=== PATIENT | male | born 1950 | race Caucasian/White ===

== ENCOUNTER 2017-01-22 10:30 | Emergency (ER) | payer MEDICARE ==
--- NOTE | 2017-01-22 10:46 | ED ---
General Adult HPI - General Stated complaint: TIA symptoms Time Seen by Provider: 01/22/17 10:30 Source: RN notes reviewed - History of Present Illness Initial comments: This is a 66-year-old male who presents emergency Department with sudden onset of left sided facial droop and some mild left arm weakness and very minimal left leg dragging. Patient states he does not notices but his daughter notices. Prior to 1010 patient was normal according to family members. Patient denies any headache. Again patient does not appreciate any numbness or weakness. Patient denies any chest pain difficulty breathing [place] of breath per patient denies any recent fever chills or cough. Patient denies any abdominal pain patient denies nausea vomiting diarrhea. Patient denies any previous history of stroke. Patient denies any problems with carotids. Patient denies any eye dentinalgia. Patient denies any kidney dysfunction. - Related Data Home Medications Medication Instructions Recorded Confirmed Tadalafil [Cialis] PRN 01/22/17 Allergies Allergy/AdvReac Type Severity Reaction Status Date / Time No Known Allergies Allergy Verified 01/22/17 10:56 Review of Systems ROS Statement: Those systems with pertinent positive or pertinent negative responses have been documented in the HPI. ROS Other: All systems not noted in ROS Statement are negative. General Exam - General Exam Comments Initial Comments: GENERAL: Patient is well-developed and well-nourished. Patient is nontoxic and well- hydrated and is in no acute distress. ENT: Neck is soft and supple. No significant lymphadenopathy is noted. Oropharynx is clear. Moist mucous membranes. Neck has full range of motion without eliciting any pain. EYES: The sclera were anicteric and conjunctiva were pink and moist. Extraocular movements were intact and pupils were equal round and reactive to light. Eyelids were unremarkable. PULMONARY: Unlabored respirations. Good breath sounds bilaterally. No audible rales rhonchi or wheezing was noted. CARDIOVASCULAR: There is a regular rate and rhythm without any murmurs gallops or rubs. Femoral pulses are equal bilaterally ABDOMEN: Soft and nontender with normal bowel sounds. No palpable organomegaly was noted. There is no palpable pulsatile mass. SKIN: Skin is clear with no lesions or rashes and otherwise unremarkable. NEUROLOGIC: Patient is alert and oriented x3. Patient has no speech disturbance. Patient does have a left-sided facial droop with intact forehead. Patient has left arm weakness but no drift. [employer] are equal bilaterally Patient also has left plantar flexion weakness. MUSCULOSKELETAL: Normal extremities with adequate strength and full range of motion. No lower extremity swelling or edema. No calf tenderness. LYMPHATICS: No significant lymphadenopathy is noted PSYCHIATRIC: Normal psychiatric evaluation. Normal interpersonal interactions appears functionally intact in deals appropriately with others. No signs of depression. No signs of anxiety. No delusions. No hallucinations. Course Vital Signs 01/22/17 01/22/17 01/22/17 11:00 11:15 11:33 Temperature 98.2 F 98.2 F 98.2 F Pulse Rate 86 88 88 Respiratory 16 16 16 Rate Blood Pressure 168/97 161/89 163/95 O2 Sat by Pulse 95 98 96 Oximetry 01/22/17 11:45 Temperature Pulse Rate 87 Respiratory 16 Rate Blood Pressure 163/95 O2 Sat by Pulse 96 Oximetry Medical Decision Making - Medical Decision Making EKG shows normal sinus rhythm at 82 bpm VT interval is 176 dresses 96 QT interval 374 QTC is 436. Patient's EKG shows no ST segment elevation or depression. CT of the brain shows multiple hemorrhagic lesions. 3 hemorrhagic lesion on the right 3 other lesions are also noted on the right are not hemorrhagic and 3 other lesions are noted on the left. Lesions are consistent with metastatic disease. Chest x-ray shows multiple nodules consistent with metastatic disease. I spoke with a [facility] who accepted the patient and I will be transferring the patient to the [facility] admission. I gave the patient Decadron for some other mild vasogenic edema I noted. I also gave the patient Ativan for his anxiety. - Lab Data Result diagrams: 01/22/17 10:44 01/22/17 10:44 Lab Results 01/22/17 01/22/17 01/22/17 Range/Units 10:44 10:44 10:44 WBC 4.5 (3.8-10.6) k/uL RBC 4.40 (4.30-5.90) m/uL Hgb 15.0 (13.0-17.5) gm/dL Hct 42.8 (39.0-53.0) % MCV 97.2 (80.0-100.0) fL MCH 34.0 (25.0-35.0) pg MCHC 35.0 (31.0-37.0) g/dL RDW 12.6 (11.5-15.5) % Plt Count 208 (150-450) k/uL Neutrophils % 62 % Lymphocytes % 26 % Monocytes % 8 % Eosinophils % 1 % Basophils % 1 % Neutrophils # 2.8 (1.3-7.7) k/uL Lymphocytes # 1.2 (1.0-4.8) k/uL Monocytes # 0.4 (0-1.0) k/uL Eosinophils # 0.1 (0-0.7) k/uL Basophils # 0.0 (0-0.2) k/uL PT (9.0-12.0) sec INR (<1.1) APTT (22.0-30.0) sec Sodium 141 (137-145) mmol/L Potassium 4.0 (3.5-5.1) mmol/L Chloride 107 (98-107) mmol/L Carbon Dioxide 24 (22-30) mmol/L Anion Gap 10 mmol/L BUN 13 (9-20) mg/dL Creatinine 0.90 (0.66-1.25) mg/dL Est GFR (MDRD) Af Amer >60 (>60 ml/min/1.73 sqM) Est GFR (MDRD) Non-Af >60 (>60 ml/min/1.73 sqM) Glucose 103 H (74-99) mg/dL Calcium 9.4 (8.4-10.2) mg/dL Total Bilirubin 0.8 (0.2-1.3) mg/dL AST 24 (17-59) U/L ALT 32 (21-72) U/L Alkaline Phosphatase 71 (38-126) U/L Total Creatine Kinase 121 (55-170) U/L CK-MB (CK-2) 1.2 (0.0-2.4) ng/mL CK-MB (CK-2) Rel Index 1.0 Troponin I <0.012 (0.000-0.034) ng/mL Total Protein 7.1 (6.3-8.2) g/dL Albumin 4.6 (3.5-5.0) g/dL 01/22/17 Range/Units 10:44 WBC (3.8-10.6) k/uL RBC (4.30-5.90) m/uL Hgb (13.0-17.5) gm/dL Hct (39.0-53.0) % MCV (80.0-100.0) fL MCH (25.0-35.0) pg MCHC (31.0-37.0) g/dL RDW (11.5-15.5) % Plt Count (150-450) k/uL Neutrophils % % Lymphocytes % % Monocytes % % Eosinophils % % Basophils % % Neutrophils # (1.3-7.7) k/uL Lymphocytes # (1.0-4.8) k/uL Monocytes # (0-1.0) k/uL Eosinophils # (0-0.7) k/uL Basophils # (0-0.2) k/uL PT 9.9 (9.0-12.0) sec INR 1.0 (<1.1) APTT 24.3 (22.0-30.0) sec Sodium (137-145) mmol/L Potassium (3.5-5.1) mmol/L Chloride (98-107) mmol/L Carbon Dioxide (22-30) mmol/L Anion Gap mmol/L BUN (9-20) mg/dL Creatinine (0.66-1.25) mg/dL Est GFR (MDRD) Af Amer (>60 ml/min/1.73 sqM) Est GFR (MDRD) Non-Af (>60 ml/min/1.73 sqM) Glucose (74-99) mg/dL Calcium (8.4-10.2) mg/dL Total Bilirubin (0.2-1.3) mg/dL AST (17-59) U/L ALT (21-72) U/L Alkaline Phosphatase (38-126) U/L Total Creatine Kinase (55-170) U/L CK-MB (CK-2) (0.0-2.4) ng/mL CK-MB (CK-2) Rel Index Troponin I (0.000-0.034) ng/mL Total Protein (6.3-8.2) g/dL Albumin (3.5-5.0) g/dL Critical Care Time Critical Care Time: Yes Total Critical Care Time: 35 Disposition Clinical Impression: Metastatic cancer to brain, Metastatic cancer to lung, Intraparenchymal hemorrhage of brain Disposition: OTHER INSTITUTION NOT DEFINED Referrals: Bridget Troy III, MD [Primary Care Provider] - 1-2 days Time of Disposition: 12:23 - Out of Hospital Transfer - Req. Specs Out of Hospital Transfer - Requested Specifics: Other Emergency Center ( [facility])
[2017-01-22] MEDS ORDERED: RX INFO: IV CONTRAST WAS GIVEN 1 EACH MISC MISCELLANE PRN (10:47)
[2017-01-22 11:10] LABS: Basophils % (A) 1 %; CH 33.6; CHCM 34.7; Eosinophils # (A) 0.1 k/uL (0-0.7); Eosinophils % (A) 1 %; HCT 42.8 % (39.0-53.0); HDW 2.31; Luc # (Auto) 0.12; Luc % (Auto) 3; Lymphocytes # (A) 1.2 k/uL (1.0-4.8); Lymphocytes % (A) 26 %; MCV 97.2 fL (80.0-100.0); Mean Platelet Volume 7.7; Monocytes # (A) 0.4 k/uL (0-1.0); Monocytes % (A) 8 %; Neutrophils # (A) 2.8 k/uL (1.3-7.7); Neutrophils % (A) 62 %; RDW 12.6 % (11.5-15.5); WBC 4.5 k/uL (3.8-10.6); WBC (Perox) 4.19
--- NOTE | 2017-01-22 11:10 | CT ---
EXAMINATION TYPE: CT brain wo con for TPA DATE OF EXAM: 01/22/2017 10:56 AM COMPARISON: NONE HISTORY: 66-year-old male left foot dragging, lightheaded, Lt facial droop TECHNIQUE: Examination was done in axial plane without intravenous contrast. Coronal and sagittal r econstructions performed. CT DLP: 996 mGycm Automated exposure control for dose reduction was used. FINDINGS: Multiple bilateral lesions are present. Most of these are hyperdense with a small surrounding rim of vasogenic edema. A couple lesions are hypodense. Largest measures 2.5 x 1.9 cm in the right basal stefany glia, axial image 22 and coronal image 30. On the right, there are 6 total lesion located at the mcdonald-white matter interfaces. On the left, there are total 3 lesions, 2 small lesions measuring up to 8 mm in the frontal lobe and one within the cingulate gyrus. No evidence for acute ischemic change, mass effect, midline shift, or extra-axial fluid collection. N o hydrocephalus. No effacement of cerebral sulci or basal subarachnoid cisterns. Mcdonald-white matter di fferentiation is maintained. Paranasal sinuses and mastoid air cells are well pneumatized. Orbits and globes are intact. IMPRESSION: 1. Multiple lesions, the largest is hemorrhagic measuring 2.5 cm in the right basal ganglia. Some are nonhemorrhagic. Approximately 6 lesions are present on the right and 3 on the left. Correlate for a ny known underlying malignancy in this patient. 2. While these lesions show mild surrounding vasogenic edema, there is no significant mass effect or midline shift. Findings called to Dr. Duval in the ER at approximately 11:05 AM.
[2017-01-22 11:18] LABS: Partial Thromboplastin Time 24.3 sec (22.0-30.0); Prothrombin Time 9.9 sec (9.0-12.0)
[2017-01-22 11:20] LABS: ALT 32 U/L (21-72); AST 24 U/L (17-59); Alkaline Phosphatase 71 U/L (38-126); Anion Gap 10 mmol/L; Blood Urea Nitrogen 13 mg/dL (9-20); Calcium 9.4 mg/dL (8.4-10.2); Carbon Dioxide 24 mmol/L (22-30); Chloride 107 mmol/L (98-107); Glucose 103 mg/dL (74-99); Non-African American GFR(MDRD) >60 (>60 ml/min/1.73 sqM); Sodium 141 mmol/L (137-145); Total Bilirubin 0.8 mg/dL (0.2-1.3); Total Protein 7.1 g/dL (6.3-8.2)
[2017-01-22 11:30] LABS: Creatine Kinase 121 U/L (55-170)
[2017-01-22] MEDS ORDERED: DEXAMETHASONE SOD PHOSPHATE 10 MG/ML 1 ML VIAL IV STA (11:31)
[2017-01-22 11:32] VITALS: RESP 16; TEMP 98.2
[2017-01-22 11:35] VITALS: BP 163/95
[2017-01-22 11:44] LABS: Creatine Kinase MB 1.2 ng/mL (0.0-2.4); Troponin I <0.012 ng/mL (0.000-0.034)
--- NOTE | 2017-01-22 11:44 | XR ---
EXAMINATION TYPE: XR chest 1V portable DATE OF EXAM: 01/22/2017 11:23 AM Comparison: None Clinical History: 66 year-old male altered mental status, TIA. Findings: Heart is normal size. Mild elongation thoracic aorta. Pulmonary vasculature within normal limits. Num erous bilateral pulmonary nodules are present, largest measuring 2.8 cm on the right. No consolidatio n or pleural effusion. Impression: Numerous bilateral pulmonary nodules, largest measuring 2.8 cm. Findings concerning for metastatic di sease. No acute pulmonary process otherwise seen.
[2017-01-22 11:46] VITALS: PULSE 87
[2017-01-22] MEDS ORDERED: LORazepam 2 MG/ML SYRINGE IV STA (11:47)
== END 2017-01-22 13:00 | disposition short-term general hospital (02) ==
LOC: EC 10:30
DX: C79.31 Secondary malignant neoplasm of brain (principal); C78.02 Secondary malignant neoplasm of left lung; C78.01 Secondary malignant neoplasm of right lung; I61.0 Nontraumatic intracerebral hemorrhage in hemisphere, subcortical; G81.90 Hemiplegia, unspecified affecting unspecified side; R29.810 Facial weakness; C80.1 Malignant (primary) neoplasm, unspecified
CPT/HCPCS: 99291; 96374; 36415; 93005; 80053; 82550; 82553; 84484; 85025; 85610; 85730; 71010; 70450; J1100

== ENCOUNTER → 2017-03-22 | Outpatient (CLI) | payer MEDICARE ==
[2017-03-22 18:16] LABS: Blood Urea Nitrogen 6 mg/dL (9-20); Non-African American GFR(MDRD) >60 (>60 ml/min/1.73 sqM)
--- NOTE | 2017-03-22 20:14 | CT ---
EXAMINATION TYPE: CT ChestAbdPelvis w con DATE OF EXAM: 03/22/2017 COMPARISON: CT scan of the abdomen on 01/22/2017. HISTORY: F/U for metastic disease after melanoma. CT DLP: 1157 mGycm Automated exposure control for dose reduction was used. CONTRAST: CT scan of the chest, abdomen and pelvis is performed with Oral Contrast and with IV Contrast, patien t injected with 100 mL of Omnipaque 300. FINDINGS: There are numerous bilateral pulmonary masses. These are of variable size and the largest measures 4. 3 cm in maximum dimension. Most of the masses are less than 2 cm. There is no evidence of aortic aneu rysm or dissection. Ascending aorta measures 3.8 cm. There is no pericardial effusion. There is no pl eural effusion. I see no mediastinal adenopathy. There are no hilar masses. There are scattered low-density areas in the liver. The largest measures 2.5 cm. Bile ducts are not d ilated. Gallbladder appears normal. Spleen and pancreas appear normal. There is no adrenal mass. Kidneys show satisfactory contrast opacification. There is no hydronephrosi s. Appendix appears normal. I see no intestinal wall thickening. There are a few sigmoid diverticula. There is no evidence of diverticulitis. Bladder distends smoothly. There is no sign of a pelvic mass . I see no retroperitoneal adenopathy. I see no bony destructive process. There are spondylotic sandoval es in the lumbar spine. There is bilateral L5 spondylolysis with first-degree L5-S1 spondylolisthesis . There is a Schmorl node on the inferior endplate of L3 vertebral body. IMPRESSION: Numerous pulmonary masses consistent with metastatic disease. These appear not significan tly changed in size compared to the CT scan of the abdomen and pelvis performed on 01/22/2017 that inc luded the lower lung gonzalez. There are several variable sized low density areas in the liver also suspicious for metastatic diseas e that are unchanged. Mild sigmoid diverticulosis.
== END | disposition home or self-care (01) ==
LOC: RADCTMAIN 17:25
PROVIDERS: ATTEND Internal Medicine Hematology & Oncology
DX: C43.9 Malignant melanoma of skin, unspecified (principal); R91.8 Other nonspecific abnormal finding of lung field; K76.89 Other specified diseases of liver; K57.30 Diverticulosis of large intestine without perforation or abscess without bleeding
CPT/HCPCS: 82565; 84520; 71260; 74177; 36415; Q9967

== ENCOUNTER → 2017-03-29 | Outpatient (CLI) | payer MEDICARE ==
--- NOTE | 2017-03-29 12:41 | MR ---
EXAMINATION TYPE: MR brain wo/w con DATE OF EXAM: 03/29/2017 COMPARISON: Brain MRI from outside institution 01/22/2017 HISTORY: Melanoma mets TECHNIQUE: Multiplanar, multisequence images of the brain and brainstem is performed without and with IV contras t, utilizing 20 mL intravenous MultiHance . FINDINGS: No restricted diffusion to suggest subacute ischemia. There are multiple areas of previousl y identified abnormality compatible with metastasis. Areas of hemosiderin are noted peripherally nurys cated by low signal on T1 and T2-weighted sequences compatible with previous hemorrhage. Right cerebe llar mass measures approximately 15 millimeters and shows ring enhancement and edema changes as alayna red to previous exam when it measured approximately 11 mm. Focus of enhancement involving the medial aspect of the left cerebellar hemisphere towards midline measures approximate 6 mm as compared to laura roximately 5 mm on prior. Medial left temporal lobe shows enhancement measuring 6 to 7 mm similar to prior exam. 2 smaller lesions at the medial left temporal lobe also show a similar appearance. Right temporal lobe shows multiple at least 5 lesions present similar to prior exam. Right occipital focus of enhancement shows heterogeneous and irregular signal and diminished size as compared to previous m easuring only approximately 11 mm in greatest dimension and postcontrast images as compared to prior where it measured 20 mm. Posterior temporal lesion on the left measures approximately 15 mm and was n ot definitively seen on prior. No significant mass effect. Too numerous to count foci of abnormal enhancement are present within the supratentorial brain, an in crease in number as compared to prior. Additional foci show evidence of local edema, posttreatment ch kenzie. IMPRESSION: There is an increase in size and number of the patient's abnormal enhancing foci, large n umber scattered masses at the de jesus-white junction in the bilateral cerebral hemispheres. Additional f indings above. Findings compatible with patient's history of metastatic melanoma.
== END | disposition home or self-care (01) ==
LOC: RADMRIMAIN 10:00
PROVIDERS: ATTEND Radiology Radiation Oncology
DX: R93.0 Abnormal findings on diagnostic imaging of skull and head, not elsewhere classified (principal); C43.59 Malignant melanoma of other part of trunk
CPT/HCPCS: 70553; A9577

== ENCOUNTER → 2017-04-29 | Outpatient (CLI) | payer MEDICARE ==
--- NOTE | 2017-04-29 12:21 | MR ---
EXAMINATION TYPE: MR brain wo/w con DATE OF EXAM: 04/29/2017 COMPARISON: 03/29/2017 HISTORY: Intracranial metastasis of melanoma. TECHNIQUE: Multiplanar, multisequence images of the brain and brainstem is performed without and with IV contras t, utilizing 20 mL intravenous MultiHance . FINDINGS: Innumerable enhancing metastatic intra-axial lesions are seen both within the supratentoriu m and infra tentorium. There appears to be increase in both size and number of metastatic foci. Multi ple of these metastases contain T1 hyperintensity which may relate to internal hemorrhage or melanin. The largest infratentorial lesion is seen within the right cerebellar hemisphere on series 701 image 17 measuring 1.4 x 1.4 cm, minimally enlarged and the prior exam. This contains a fluid/fluid level and enhances peripherally. There is encephalomalacia from prior infarct of the right lentiform nucleu s. The largest lesion within the supratentorium is located just above the splenium of the corpus call osum measuring approximately 1.8 x 1.1 cm. A large new lesion in the right cerebral hemispheric just posterior to the area of encephalomalacia within the right lentiform nucleus measures 1.6 x 1.5 cm. C onfluent area of white matter change without de jesus matter involvement within the right frontal lobe th at does not enhance likely relates to vasogenic edema and/or posttreatment change. Small degree of va sogenic edema surrounds each of the intracranial lesions. Some fluid fluid levels are scattered withi n lesions indicative of central necrosis. There is no evidence of significant midline shift. No restricted diffusion to indicate acute or subac ivan ischemia. The craniocervical junction appears within normal limits. The dural venous sinuses laura ear patent. Minimal mucosal thickening is seen within the ethmoid sinuses. The remaining visualized s inuses are clear and the globes are intact. No gross evidence of leptomeningeal enhancement or osseou s metastasis. IMPRESSION: 1. Progression of disease. Increase in size and number of complex enhancing metastatic intra-axial le sions of the supratentorial and infratentorial. Some of these contain T1 hyperintensity which could r elate to internal hemorrhage and/or melanin. Others contain fluid fluid levels indicative of evolving intratumoral hemorrhage/necrosis. 2. Encephalomalacia of the right lentiform nucleus, unchanged. 3. No evidence of acute territorial infarct.
== END | disposition home or self-care (01) ==
LOC: RADMRIMAIN 11:01
PROVIDERS: ATTEND Radiology Radiation Oncology
DX: C79.31 Secondary malignant neoplasm of brain (principal); G93.89 Other specified disorders of brain
CPT/HCPCS: 70553; A9577

== ENCOUNTER → 2017-06-20 | Outpatient (CLI) | payer MEDICARE ==
--- NOTE | 2017-06-20 22:38 | MR ---
EXAMINATION TYPE: MR brain wo/w con DATE OF EXAM: 06/20/2017 COMPARISON: 04/29/2017 HISTORY: 67-year-old male secondary malignant neoplasm of brain, melanoma brain metastases. TECHNIQUE: Multiplanar, multisequence images of the brain and brainstem were acquired before and aft er administration of 7.5 mL IV Gadavist. Diffusion weighted imaging is performed. FINDINGS: Redemonstrated numerous supratentorial and infratentorial brain metastases. On DWI, overall, these show primarily a T2 shine true. Some may demonstrate mild restricted diffusion likely secondary to hypercellularity. These also show overall increasing T1 high signal, most of the lesions are larger, and show increasing T2 weighted signal and decreasing areas of nodular T2 dark s ignal. No vascular territorial infarction is seen. There are increasing and some new areas of vasogenic edema. For example, the largest is in the right temporoparietal junction measuring 3.3 cm with mildly thicke preston peripheral enhancement versus 1.4 cm, previously where some peripheral nodular enhancement was al so present. A lesion in the left posterior parietal lobe measures 1.9 cm versus 3 mm, previously and now shows as sociated vasogenic edema. A lesion in the anterior right frontal lobe measures 2.4 cm versus 1.4 cm, previously. While it is en larged, it now appears more cystic with a lesser degree of internal nodular enhancement. A 1 cm lesion in the anterior left subinsular white matter is new with new surrounding vasogenic jose a. These are only examples. Too numerous to count small foci of enhancement are scattered throughout the de jesus-white matter interf aces but overall have decreased in size and number. There is no midline shift or hydrocephalus. No effacement of basal subarachnoid cisterns. Major intracranial flow voids are intact. Midline structures demonstrate normal morphology. The craniocervical junction is normal. Dural venous sinuses are patent. Moderate mucosal thickening within the ethmoid air cells. Partial opacification of the mastoid air ce lls. Correlate for any mastoid pain to exclude mastoiditis. IMPRESSION: 1. There appears to be an overall mixed response. While most of the lesions show increasing size, the y now appear more cystic with decreasing internal nodular enhancement that could represent posttreatm ent change. I T1 signal could represent melanin or internal hemorrhage. 2. Areas of surrounding vasogenic edema have increased and a few lesions are new. 3. However, the previous innumerable small foci throughout the de jesus-white matter interfaces have now decreased in size and overall number. 4. No mass effect or midline shift.
== END | disposition home or self-care (01) ==
LOC: RADMRIMAIN 11:47
PROVIDERS: ATTEND Radiology Radiation Oncology
DX: C79.31 Secondary malignant neoplasm of brain (principal)
CPT/HCPCS: 70553; A9581